=== PATIENT | female | born 1995 | race Hispanic/Latino ===

== ENCOUNTER → 2023-07-23 08:40 | Outpatient (REF) | payer OTHER, SELFPAY ==
[2023-07-23 09:30] LABS: ALT (SGPT) 19 U/L (0-35); AST (SGOT) 21 U/L (14-36); Albumin 4.4 g/dl (3.5-5.0); Alkaline Phosphatase 106 U/L (38-126); Blood Urea Nitrogen 11 mg/dl (7-17); Calcium 8.8 mg/dl (8.4-10.2); Carbon Dioxide 28 mmol/L (22-30); Chloride 106 mmol/L (98-107); Glucose 98 mg/dl (70-99); HDL Cholesterol 49 mg/dl; LDL Cholesterol, Calculated 85 mg/dl; Sodium 138 mmol/L (135-145); Total Bilirubin 0.8 mg/dl (0.2-1.3); Total Cholesterol 175 mg/dl (50-199); Total Protein 7.2 g/dl (6.3-8.2); Triglyceride 207 mg/dl (10-149); Very Low Density Lipoprotein 41 mg/dl (0-30); eGFR > 60.00
[2023-07-23 09:45] LABS: Vitamin D, 25-OH*** 27.7 ng/mL (30-80)
== END ==
LOC: CLINIC 08:40
PROVIDERS: ATTENDING PHYSICIAN Nurse Practitioner Acute Care
DX: E78.1 Pure hyperglyceridemia (principal); R74.8 Abnormal levels of other serum enzymes; E55.9 Vitamin D deficiency, unspecified
CPT/HCPCS: 36415; 80053; 80061; 82306

== ENCOUNTER → 2023-08-16 13:27 | Outpatient (REF) | payer OTHER, SELFPAY ==
[2023-08-24 08:45] LABS: HPV, High Risk Not Detected; HPV, High Risk Source Cervical
== END ==
LOC: CLINIC 13:27
PROVIDERS: ATTENDING PHYSICIAN Family Medicine
DX: Z12.4 Encounter for screening for malignant neoplasm of cervix (principal)
CPT/HCPCS: 87624; G0123

== ENCOUNTER → 2024-06-18 09:38 | Outpatient (REF) | payer OTHER, SELFPAY ==
[2024-06-20 22:40] LABS: Aptima Media Type MultiTest Swab; Chlamydia trachomatis by TMA Negative (Negative); Neisseria gonorrhoeae by TMA Negative (Negative); Specimen Source Vaginal
== END ==
LOC: CLINIC 09:38
PROVIDERS: ATTENDING PHYSICIAN Obstetrics & Gynecology Gynecology
DX: Z20.2 Contact with and (suspected) exposure to infections with a predominantly sexual mode of transmission (principal)
CPT/HCPCS: 87491; 87591